=== PATIENT | male | born 1975 | race American Indian/Alaskan Native ===

== ENCOUNTER 2022-01-27 22:12 | Inpatient (IN) | payer MEDICAID ==
[2022-01-27] MEDS ORDERED: Sodium Chloride 0.9% 1,000 ML IV ONE (23:37)
[2022-01-27] MEDS ORDERED: Sodium Chloride 0.9% 10 ML Syringe FLUSH PRN (23:37)
[2022-01-27] MEDS ORDERED: Pantoprazole 40 MG Tab.CR PO SCH (23:45)
[2022-01-27] MEDS ORDERED: amLODIPine 5 MG Tab PO ONE (23:46)
[2022-01-27] MEDS ORDERED: Glucagon,Human Recombinant 1 MG Vial IM PRN ×2 (23:47→23:48)
[2022-01-27] MEDS ORDERED: 50% Dextrose in Water 50 ML Syringe IVPUSH PRN ×2 (23:47→23:48)
[2022-01-27] MEDS ORDERED: Insulin Lispro 100 Units/ML 3 ML Vial SUBCUT ONE (23:48)
[2022-01-28 00:26] LABS: ESTIMATED GFR 53 mL/min (>60)
[2022-01-28] MEDS ORDERED: Insulin Glargine,Human Rec. Analog 100 Units/ML 3 ML Pen SUBCUT ONE ×2 (00:40→23:47)
[2022-01-28] MEDS ORDERED: Glucagon,Human Recombinant 1 MG Vial IM PRN (00:48)
[2022-01-28] MEDS ORDERED: 50% Dextrose in Water 50 ML Syringe IVPUSH PRN ×2 (00:48→04:01)
[2022-01-28] MEDS ORDERED: Insulin Lispro 100 Units/ML 3 ML Vial SUBCUT ONE (00:48)
[2022-01-28] MEDS ORDERED: Sodium Chloride 0.9% 1,000 ML IV ONE (00:49)
[2022-01-28 01:43] LABS: CORONAVIRUS COVID-19 NAA NEGATIVE (NEGATIVE)
[2022-01-28] MEDS ORDERED: Acetaminophen 325 MG Tab, 50 Tab Bulk Bottle PO ONE (02:26)
[2022-01-28] MEDS ORDERED: traZODone 50 MG Tab PO ONE (02:27)
[2022-01-28] MEDS ORDERED: Acetaminophen 325 MG Tab PO ONE (02:44)
[2022-01-28] MEDS ORDERED: Potassium Chloride 20 MEQ in Premix Bag 1 BAG IV ONE (04:01)
[2022-01-28] MEDS ORDERED: Sodium Chloride 0.9% 10 ML Syringe FLUSH PRN (04:01)
[2022-01-28] MEDS ORDERED: Sodium Chloride 0.9% 2,000 ML IV PRN (04:01)
[2022-01-28] MEDS ORDERED: Sodium Phosphate 60 MMOLE in Sodium Chloride 0.9% 250 ML IV PRN (04:01)
[2022-01-28] MEDS ORDERED: Magnesium Sulfate/Water 50 ML IV PRN (04:01)
[2022-01-28] MEDS ORDERED: Potassium Chloride 20 MEQ in Premix Bag 1 BAG IV PRN ×4 (04:01)
[2022-01-28] MEDS ORDERED: Potassium Chloride 10% 20 MEQ/15 ML Soln 15 ML UD Cup PO PRN ×2 (04:01)
[2022-01-28] MEDS ORDERED: Ondansetron 4 MG/2 ML SDV IV PRN (04:01)
[2022-01-28] MEDS ORDERED: Calcium Carbonate 500 MG Tab.Chew PO PRN (04:06)
[2022-01-28] MEDS ORDERED: Nicotine Polacrilex 2 MG Gum CHEW PRN (04:06)
[2022-01-28] MEDS: Sodium Chloride 0.9% 1,000 ML IV PRN ×2 (04:10→09:12)
[2022-01-28] MEDS: Insulin Regular in 0.9 % NACL 100 ML IV SCH ×3 (04:24→19:06)
[2022-01-28] MEDS: Nicotine 14 MG/24 Hr Patch TRDERM SCH ×3 (05:21→10:49)
[2022-01-28] MEDS: Dextrose 5%-0.45% NaCl 1,000 ML IV PRN (06:00)
[2022-01-28] MEDS: Potassium Chloride 10% 20 MEQ/15 ML Soln 15 ML UD Cup PO PRN ×4 (06:43→18:43)
[2022-01-28] MEDS: Pantoprazole 40 MG Tab.CR PO SCH (07:46)
[2022-01-28 09:48] LABS: HEMOGLOBIN A1C 13.6 % (4.5-6.2)
[2022-01-28] MEDS: buPROPion 150 MG Tab.ER PO SCH ×2 (10:41→13:12)
[2022-01-28] MEDS: busPIRone 10 MG Tab PO SCH ×3 (10:41→21:40)
[2022-01-28] MEDS: Sodium Chloride 0.9% 2,000 ML IV PRN ×2 (12:58→17:12)
[2022-01-28] MEDS: Acetaminophen 325 MG Tab PO PRN ×2 (13:19→19:44)
[2022-01-28] MEDS: Liraglutide (rDNA Origin) 0.6 MG/0.1 ML 3 ML Pen SUBCUT SCH (14:09)
[2022-01-28] MEDS: metFORMIN 500 MG Tab PO SCH (17:00)
[2022-01-28] MEDS ORDERED: Lisinopril 5 MG Tab PO ONE (19:14)
[2022-01-28] MEDS ORDERED: traZODone 50 MG Tab PO SCH (21:00)
[2022-01-28] MEDS ORDERED: QUEtiapine 100 MG Tab PO SCH (21:00)
[2022-01-28] MEDS ORDERED: QUETIAPINE PO SCH ×2 (21:00)
[2022-01-29] MEDS: Dextrose 5%-0.45% NaCl 1,000 ML IV PRN ×2 (00:18→03:16)
[2022-01-29] MEDS: Potassium Chloride 10% 20 MEQ/15 ML Soln 15 ML UD Cup PO PRN (00:53)
[2022-01-29] MEDS: Nicotine 14 MG/24 Hr Patch TRDERM SCH ×2 (03:14→08:24)
[2022-01-29] MEDS ORDERED: Glucagon,Human Recombinant 1 MG Vial IM PRN ×2 (03:47→10:26)
[2022-01-29] MEDS ORDERED: 50% Dextrose in Water 50 ML Syringe IVPUSH PRN ×2 (03:47→10:26)
[2022-01-29] MEDS ORDERED: Insulin Lispro 100 Unit/ML 3 ML KwikPen SUBCUT SCH (07:00)
[2022-01-29] MEDS: Pantoprazole 40 MG Tab.CR PO SCH (07:28)
[2022-01-29] MEDS: Acetaminophen 325 MG Tab PO PRN (07:29)
[2022-01-29] MEDS: metFORMIN 500 MG Tab PO SCH (07:58)
[2022-01-29 08:24] VITALS: PULSE 113
[2022-01-29] MEDS: Liraglutide (rDNA Origin) 0.6 MG/0.1 ML 3 ML Pen SUBCUT SCH (08:30)
[2022-01-29 08:32] VITALS: BP 144/77
[2022-01-29] MEDS: busPIRone 10 MG Tab PO SCH (08:33)
[2022-01-29] MEDS: buPROPion 150 MG Tab.ER PO SCH (08:34)
[2022-01-29] MEDS ORDERED: Insulin Glargine,Human Rec. Analog 100 Units/ML 3 ML Pen SUBCUT SCH (10:30)
== END 2022-01-29 11:50 | disposition home or self-care (01) | DRG 639 ==
LOC: JP.ED 22:12 → JP.ICU 01-28 03:11
PROVIDERS: ADMIT Hospitalist; ATTEND Hospitalist
DX: E11.10 Type 2 diabetes mellitus with ketoacidosis without coma (principal); F17.210 Nicotine dependence, cigarettes, uncomplicated; J44.9 Chronic obstructive pulmonary disease, unspecified; F41.9 Anxiety disorder, unspecified; F31.9 Bipolar disorder, unspecified; Z20.822 Contact with and (suspected) exposure to COVID-19; E11.65 Type 2 diabetes mellitus with hyperglycemia; I10 Essential (primary) hypertension; E66.9 Obesity, unspecified; Z83.3 Family history of diabetes mellitus; Z68.37 Body mass index [BMI] 37.0-37.9, adult; Z86.19 Personal history of other infectious and parasitic diseases
CPT/HCPCS: 0241U; 36415; 80048; 80053; 81001; 81003; 82009; 82803; 82947; 83036; 83735; 84100; 84132; 85025; 96360; 96361; 99232; 99238; 99284; 99284-25; A9270-GY; J1815; J1815-GY; J7030; J7042

== ENCOUNTER 2024-10-04 23:02 | Emergency (ER) | payer MEDICAID ==
[2024-10-04 23:29] VITALS: BP 193/107; PULSE 125
[2024-10-04 23:43] LABS: BASOPHILS ABSOLUTE AUTO 0.06 K/uL (0.00-0.10); BASOPHILS PERCENT AUTO 0.5 % (0.1-1.3); EOSINOPHILS ABSOLUTE AUTO 0.26 K/uL (0.00-0.40); EOSINOPHILS PERCENT AUTO 2.4 % (0.0-5.4); HEMATOCRIT 42.2 % (38.4-49.7); HEMOGLOBIN 13.8 g/dL (12.9-16.9); IMMATURE GRAN ABSOLUTE AUTO 0.07 K/uL (0.00-0.23); IMMATURE GRAN PERCENT AUTO 0.6 % (0.0-0.7); LYMPHOCYTES ABSOLUTE AUTO 1.57 K/uL (0.8-3.3); LYMPHOCYTES PERCENT AUTO 14.2 % (11.4-47.7); MEAN CORPUSCULAR HEMOGLOBIN 28.1 pg (31.6-35.5); MEAN CORPUSCULAR HGB CONC 32.7 g/dL (31.6-35.5); MEAN CORPUSCULAR VOLUME 85.9 fL (81.4-99.0); MONOCYTES ABSOLUTE AUTO 0.71 K/uL (0.20-0.90); MONOCYTES PERCENT AUTO 6.4 % (3.3-12.6); NEUTROPHILS ABSOLUTE AUTO 8.36 K/uL (1.0-7.6); NEUTROPHILS PERCENT AUTO 75.9 % (40.0-78.1); PLATELET COUNT,PLT 412 K/uL (130-375); RED BLOOD CELL COUNT 4.91 M/uL (4.14-5.76)
[2024-10-04] MEDS ORDERED: Naloxone 0.4 MG/ML SDV IVPUSH PRN (23:48)
[2024-10-04 23:52] LABS: INR 0.9; PROTHROMBIN TIME 9.3 sec (9.2-10.6)
[2024-10-04 23:56] LABS: ALANINE AMINOTRANSFERASE,ALT 28 U/L (12-78); ALBUMIN 4.1 g/dL (3.4-5.0); ALKALINE PHOSPHATASE 54 U/L (46-116); ASPARTATE AMNIOTRANSFERASE,AST 26 U/L (15-37); BILIRUBIN TOTAL 0.3 mg/dL (0.2-1.0); BLOOD UREA NITROGEN,BUN 20 mg/dL (7-18); CALCIUM 10.2 mg/dL (8.5-10.1); CARBON DIOXIDE,CO2 22 mmol/L (21-32); CHLORIDE,CL 103 mmol/L (100-108); CREATININE 1.1 mg/dL (0.8-1.3); EST CRCL DRUG DOSING (CG) 82.03 mL/min; ESTIMATED GFR 81 mL/min (>60); GLUCOSE RANDOM 133 mg/dL (74-106); POTASSIUM,K 4.2 mmol/L (3.6-5.2); PROTEIN TOTAL,TP 8.3 g/dL (6.4-8.2); SODIUM,NA 138 mmol/L (140-148)
[2024-10-05 00:02] LABS: ANION GAP 17.2 mmol/L (5.0-14.0)
[2024-10-05] MEDS: Sodium Chloride 0.9% 1,000 ML IV ONE ×3 (00:26→04:28)
[2024-10-05] MEDS: HYDROmorphone 0.5 MG/0.5 ML Syringe IVPUSH ONE ×2 (00:26→00:56)
[2024-10-05] MEDS: Sodium Chloride 0.9% 80 ML IV SCH (00:31)
[2024-10-05] MEDS: Iopamidol 612 MG/ML 100 ML Bottle IV SCH (00:31)
[2024-10-05] MEDS: hydrALAZINE 20 MG/ML SDV IVPUSH ONE (02:11)
[2024-10-05] MEDS: Morphine 4 MG/ML Syringe IVPUSH ONE (03:03)
[2024-10-05] MEDS: Lidocaine 1% with EPINEPHrine 1:100,000 20 ML MDV INJECT ONE (03:03)
[2024-10-05] MEDS: HYDROmorphone 1 MG/ML Syringe IVPUSH ONE (03:53)
[2024-10-05] MEDS: Labetalol 20 MG/4 ML Syringe IVPUSH ONE (04:27)
[2024-10-05] MEDS: Bacitracin Oint 1 GM U/D Packet TOP ONE (04:28)
== END 2024-10-05 05:10 | disposition home or self-care (01) ==
LOC: JP.ED 23:02
DX: S00.03XA Contusion of scalp, initial encounter (principal); S30.1XXA Contusion of abdominal wall, initial encounter; M79.671 Pain in right foot; J44.9 Chronic obstructive pulmonary disease, unspecified; I10 Essential (primary) hypertension; E11.9 Type 2 diabetes mellitus without complications; Z79.899 Other long term (current) drug therapy; Z79.84 Long term (current) use of oral hypoglycemic drugs; Z79.4 Long term (current) use of insulin; Y00.XXXA Assault by blunt object, initial encounter
CPT/HCPCS: 12011; 36415; 70450; 70486; 71260; 72125; 73630; 74177; 76377; 80053; 84484; 85025; 85610; 96361; 96374; 96375; 96376; 99283; 99284; J0360; J1171; J1920; J2004; J2270; J7030; Q9967